=== PATIENT | female | born 1940 | race Caucasian/White ===

== ENCOUNTER → 2016-11-21 | Outpatient (REF) | payer MEDICARE, BC | LOC: M LAB REF 13:36 | PROVIDERS: ATTEND Internal Medicine Medical Oncology | DX: C50.919 Malignant neoplasm of unspecified site of unspecified female breast (principal) ==

== ENCOUNTER → 2016-12-27 | Outpatient (CLI) | payer MEDICARE ==
--- NOTE | 2016-12-27 10:46 | REPMRS ---
Patient History The patient states she had a clinical breast exam in 2016. Patient is postmenopausal, has history of cancer in the left breast at age 66, and had previous chemotherapy. 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 Radiation therapy of the left breast, 2006. Chemotherapy. Digital Mammo Screening Bilat: December 27, 2016 - Exam #: [id number] Bilateral CC and MLO view(s) were taken. Technologist: Christine Pretty, Technologist Prior study comparison: December 27, 2015, bilateral digital mammo screening bilat performed at [facility]. December 22, 2014, bilateral digital mammo screening bilat performed at [facility]. FINDINGS: There are scattered fibroglandular densities. There is no evidence of cancer on this mammogram. Scattered lymph nodes are seen in the axilla. No significant changes when compared with prior studies. ASSESSMENT: BI-RADS/ACR category 2 mammogram. Benign finding(s). Recommendation Routine screening mammogram of both breasts in 1 year (for women over age 40). This mammogram was interpreted with the aid of an FDA-approved computer-aided dectection system. Electronically Signed By: Baljinder Vergara MD 12/27/16 [id number]
== END ==
LOC: M RAD 09:11
PROVIDERS: ATTEND Internal Medicine Medical Oncology
DX: Z12.31 Encounter for screening mammogram for malignant neoplasm of breast (principal); Z85.3 Personal history of malignant neoplasm of breast

== ENCOUNTER → 2017-05-22 | Outpatient (REF) | payer MEDICARE, BC | LOC: M LAB REF 13:21 | PROVIDERS: ATTEND Internal Medicine Medical Oncology | DX: C50.919 Malignant neoplasm of unspecified site of unspecified female breast (principal) ==

== ENCOUNTER → 2017-12-29 | Outpatient (CLI) | payer MEDICARE | LOC: M RAD 09:16 | DX: Z12.31 Encounter for screening mammogram for malignant neoplasm of breast (principal); Z78.0 Asymptomatic menopausal state; Z85.3 Personal history of malignant neoplasm of breast; Z92.21 Personal history of antineoplastic chemotherapy; Z92.3 Personal history of irradiation | CPT/HCPCS: 77067 ==

== ENCOUNTER → 2018-06-23 | Outpatient (CLI) | payer MEDICARE ==
[2018-06-23 09:51] LABS: HEMATOCRIT 42.9 % (36.0-47.0); HEMOGLOBIN 13.7 g/dl (12.0-15.5); MEAN CORPUSCULAR HEMOGLOBIN 29.5 pg (27.0-33.0); MEAN CORPUSCULAR HGB CONC 31.9 g/dl (32.0-36.5); MEAN CORPUSCULAR VOLUME 92.3 fl (80.0-96.0); PLATELET COUNT, AUTOMATED 245 10^3/uL (150-450); RED BLOOD COUNT 4.65 10^6/uL (4.00-5.40); WHITE BLOOD COUNT 8.3 10^3/uL (4.0-10.0)
[2018-06-23 10:25] LABS: ALBUMIN 3.4 GM/DL (3.2-5.2); ALBUMIN/GLOBULIN RATIO 0.72 (1.00-1.93); ALKALINE PHOSPHATASE 88 U/L (45-117); ALT/SGPT 25 U/L (12-78); ANION GAP 8 MEQ/L (8-16); AST/SGOT 24 U/L (7-37); BILIRUBIN,TOTAL 0.7 MG/DL (0.2-1.0); BLOOD UREA NITROGEN 14 MG/DL (7-18); CALCIUM LEVEL 9.5 MG/DL (8.8-10.2); CARBON DIOXIDE LEVEL 26 MEQ/L (21-32); CHLORIDE LEVEL 107 MEQ/L (98-107); CREATININE FOR GFR 1.04 MG/DL (0.55-1.30); GLOMERULAR FILTRATION RATE 54.6 (>39); GLUCOSE, FASTING 103 MG/DL (70-100); POTASSIUM SERUM 4.5 MEQ/L (3.5-5.1); SODIUM LEVEL 141 MEQ/L (136-145); TOTAL PROTEIN 8.1 GM/DL (6.4-8.2)
[2018-06-23 10:28] LABS: ERYTHROCYTE SEDIMENTATION RATE 57 mm/hr (0-30)
[2018-06-23 10:55] LABS: INR 1.12; PROTHROMBIN TIME 14.6 SECONDS (12.1-14.4)
== END ==
LOC: M LAB 08:45
DX: Z01.818 Encounter for other preprocedural examination (principal); I10 Essential (primary) hypertension; R79.1 Abnormal coagulation profile
CPT/HCPCS: 71046

== ENCOUNTER 2018-07-06 09:04 | Inpatient (IN) | payer MEDICARE ==
[2018-07-06] MEDS: LEVOTHYROXINE 25MCG TABLET (0.025MG) PO (06:00)
[2018-07-06] MEDS ORDERED: ceFAZolin 2 GM/D5W 50 ML IV BAG (J0690 PER 500MG) As Ordered (09:25)
[2018-07-06] MEDS: LR 1,000 ML IV ×3 (09:59→13:15)
[2018-07-06 10:13] LABS: GLUCOSE, FASTING 147 MG/DL (70-100)
[2018-07-06] MEDS ORDERED: PHENYLephrine HCL 500 MCG/5 ML (100MCG/ML) SYRINGE (J2370) As Ordered (11:25)
[2018-07-06] MEDS ORDERED: LIDOCAINE 2% INJ 100 MG/5 ML SDV (FOR ANES.) As Ordered (11:25)
[2018-07-06] MEDS ORDERED: MIDAZOLAM INJ 2 MG/2 ML VIAL (J2250) As Ordered (11:25)
[2018-07-06] MEDS ORDERED: ROCURONIUM BROMIDE 50 MG/5 ML VIAL As Ordered (11:25)
[2018-07-06] MEDS ORDERED: PROPOFOL 200 MG/20 ML VIAL As Ordered (11:25)
[2018-07-06] MEDS ORDERED: fentaNYL 100 MCG/2 ML INJECTION (J3010) As Ordered ×2 (11:25→11:26)
[2018-07-06] MEDS: ceFAZolin 1GM INJ (J0690 PER 500MG) As Ordered (11:38)
[2018-07-06] MEDS ORDERED: METOCLOPRAMIDE INJ 10MG/2ML VIAL (J2765) As Ordered (11:45)
[2018-07-06] MEDS ORDERED: ONDANSETRON 4MG/2ML VIAL (J2405) As Ordered (12:17)
[2018-07-06] MEDS ORDERED: NEOSTIGMINE 10 MG/10 ML VIAL (J2710) As Ordered (12:19)
[2018-07-06] MEDS ORDERED: GLYCOPYRROLATE INJ 0.2 MG/ML 2 ML VIAL As Ordered (12:19)
[2018-07-06] MEDS: EPINEPHrine INJ 1 MG/ML 1ML AMP As Ordered (12:21)
[2018-07-06] MEDS: TRANEXAMIC ACID 100 MG/ML 10ML VIAL As Ordered (12:21)
[2018-07-06] MEDS ORDERED: PERCOCET 5MG/325MG TAB As Ordered (12:52)
[2018-07-06] MEDS ORDERED: MORPHINE 1MG/ML IN 0.9% NACL 100ML IV BAG IV (13:00)
[2018-07-06] MEDS ORDERED: NALBUPHINE HCL 10 MG/ML AMP (J2300) IV (13:00)
[2018-07-06] MEDS ORDERED: EPIDURAL/PCA KEYS XX (13:00)
[2018-07-06] MEDS ORDERED: diphenhydrAMINE INJ 50MG/ML VIAL (J1200) IV (13:00)
[2018-07-06] MEDS ORDERED: FLEET ENEMA PR (13:00)
[2018-07-06] MEDS ORDERED: ONDANSETRON 4MG/2ML VIAL (J2405) IV ×3 (13:00→13:15)
[2018-07-06] MEDS ORDERED: NALOXONE INJ 0.4 MG/1 ML VIAL (J2310) IV (13:00)
[2018-07-06] MEDS ORDERED: ACETAMINOPHEN TAB 650MG DOSE (2X325MG) PO (13:00)
[2018-07-06] MEDS: PERCOCET 5MG/325MG TAB PO ×2 (13:05→13:40)
[2018-07-06] MEDS ORDERED: fentaNYL 100 MCG/2 ML INJECTION (J3010) IV (13:15)
[2018-07-06] MEDS ORDERED: HYDROMORPHONE HCL 0.5 MG/ 0.5 ML SYRINGE (J1170 PER 1) IV (13:15)
[2018-07-06] MEDS ORDERED: GLUCAGON FOR INJ 1 MG VIAL (J1610) SC (15:15)
[2018-07-06] MEDS ORDERED: DEXTROSE 50% 50 ML SYRINGE IV (15:15)
[2018-07-06] MEDS ORDERED: GLUCOSE 4 GM CHEW TABLET PO (15:15)
[2018-07-06 16:44] LABS: BEDSIDE GLUCOSE 176 MG/DL (83-110)
[2018-07-06] MEDS: HumaLOG INSULIN (NovoLOG) PER UNIT SC ×2 (17:59→21:00)
[2018-07-06] MEDS: SENOKOT S TAB PO (22:11)
[2018-07-06 22:20] LABS: BEDSIDE GLUCOSE 191 MG/DL (83-110)
[2018-07-07] MEDS: LR 1,000 ML IV (02:20)
[2018-07-07] MEDS: LEVOTHYROXINE 25MCG TABLET (0.025MG) PO (05:44)
[2018-07-07 06:45] LABS: HEMATOCRIT 34.5 % (36.0-47.0); HEMOGLOBIN 11.1 g/dl (12.0-15.5); MEAN CORPUSCULAR HEMOGLOBIN 29.6 pg (27.0-33.0); MEAN CORPUSCULAR HGB CONC 32.2 g/dl (32.0-36.5); PLATELET COUNT, AUTOMATED 256 10^3/uL (150-450); RED BLOOD COUNT 3.75 10^6/uL (4.00-5.40); RED CELL DISTRIBUTION WIDTH 13.6 % (11.5-14.5); WHITE BLOOD COUNT 9.6 10^3/uL (4.0-10.0)
[2018-07-07] MEDS ORDERED: PERCOCET 5MG/325MG TAB PO (06:45)
[2018-07-07] MEDS ORDERED: ONDANSETRON 4 MG TAB (S0181) PO (06:45)
[2018-07-07 07:16] LABS: ALBUMIN 2.6 GM/DL (3.2-5.2); ALBUMIN/GLOBULIN RATIO 0.63 (1.00-1.93); ALKALINE PHOSPHATASE 65 U/L (45-117); ALT/SGPT 23 U/L (12-78); ANION GAP 5 MEQ/L (8-16); AST/SGOT 32 U/L (7-37); BILIRUBIN,TOTAL 0.5 MG/DL (0.2-1.0); BLOOD UREA NITROGEN 15 MG/DL (7-18); CALCIUM LEVEL 8.2 MG/DL (8.8-10.2); CARBON DIOXIDE LEVEL 28 MEQ/L (21-32); CHLORIDE LEVEL 103 MEQ/L (98-107); CREATININE FOR GFR 1.01 MG/DL (0.55-1.30); GLOMERULAR FILTRATION RATE 56.3 (>39); GLUCOSE, FASTING 148 MG/DL (70-100); MAGNESIUM LEVEL 1.5 MG/DL (1.8-2.4); POTASSIUM SERUM 4.6 MEQ/L (3.5-5.1); SODIUM LEVEL 136 MEQ/L (136-145); TOTAL PROTEIN 6.7 GM/DL (6.4-8.2)
[2018-07-07] MEDS: HumaLOG INSULIN (NovoLOG) PER UNIT SC ×4 (08:14→21:00)
[2018-07-07] MEDS: PERCOCET 5MG/325MG TAB PO ×3 (08:15→23:18)
[2018-07-07] MEDS: OMEPRAZOLE 20 MG CAP PO (08:54)
[2018-07-07] MEDS: SENOKOT S TAB PO ×2 (08:54→21:08)
[2018-07-07] MEDS: LISINOPRIL 10 MG TAB PO (08:54)
[2018-07-07] MEDS: MOM 30ML SUSPENSION UDC PO (08:55)
[2018-07-07] MEDS: MIRALAX *UNIT DOSE* 17GM PACKET PO (08:55)
[2018-07-07] MEDS: ATORVASTATIN 20 MG TAB PO (08:55)
[2018-07-07 11:54] LABS: BEDSIDE GLUCOSE 186 MG/DL (83-110)
[2018-07-07] MEDS: MAG SULF 1GM/100ML (MAG RUN) 1 GM in APPROPRIATE DILUENT 1 EA IV ×2 (12:50→14:05)
[2018-07-07 16:46] LABS: BEDSIDE GLUCOSE 138 MG/DL (83-110)
[2018-07-07] MEDS: RIVAROXABAN 10 MG TAB (XARELTO) PO (17:39)
[2018-07-07 20:44] LABS: BEDSIDE GLUCOSE 173 MG/DL (83-110)
[2018-07-08] MEDS: LEVOTHYROXINE 25MCG TABLET (0.025MG) PO (05:11)
[2018-07-08] MEDS: PERCOCET 5MG/325MG TAB PO ×3 (05:12→13:12)
[2018-07-08 07:11] LABS: HEMATOCRIT 32.6 % (36.0-47.0); HEMOGLOBIN 10.2 g/dl (12.0-15.5); MEAN CORPUSCULAR HEMOGLOBIN 29.4 pg (27.0-33.0); MEAN CORPUSCULAR HGB CONC 31.3 g/dl (32.0-36.5); MEAN CORPUSCULAR VOLUME 93.9 fl (80.0-96.0); PLATELET COUNT, AUTOMATED 244 10^3/uL (150-450); RED BLOOD COUNT 3.47 10^6/uL (4.00-5.40); RED CELL DISTRIBUTION WIDTH 13.8 % (11.5-14.5); WHITE BLOOD COUNT 10.2 10^3/uL (4.0-10.0)
[2018-07-08 07:25] LABS: ANION GAP 8 MEQ/L (8-16); BLOOD UREA NITROGEN 16 MG/DL (7-18); CALCIUM LEVEL 8.7 MG/DL (8.8-10.2); CARBON DIOXIDE LEVEL 27 MEQ/L (21-32); CHLORIDE LEVEL 100 MEQ/L (98-107); CREATININE FOR GFR 0.94 MG/DL (0.55-1.30); GLOMERULAR FILTRATION RATE > 60.0 (>39); GLUCOSE, FASTING 152 MG/DL (70-100); MAGNESIUM LEVEL 2.1 MG/DL (1.8-2.4); POTASSIUM SERUM 4.5 MEQ/L (3.5-5.1); SODIUM LEVEL 135 MEQ/L (136-145)
[2018-07-08] MEDS: HumaLOG INSULIN (NovoLOG) PER UNIT SC ×2 (08:35→12:01)
[2018-07-08] MEDS: ATORVASTATIN 20 MG TAB PO (08:57)
[2018-07-08] MEDS: LISINOPRIL 20 MG TAB PO (08:57)
[2018-07-08] MEDS: OMEPRAZOLE 20 MG CAP PO (08:58)
[2018-07-08] MEDS: MIRALAX *UNIT DOSE* 17GM PACKET PO (08:58)
[2018-07-08] MEDS: SENOKOT S TAB PO (08:58)
[2018-07-08] MEDS: MOM 30ML SUSPENSION UDC PO (08:58)
[2018-07-08 16:55] LABS: BEDSIDE GLUCOSE 145 MG/DL (83-110)
[2018-07-09 11:59] LABS: BEDSIDE GLUCOSE 133 MG/DL (83-110)
== END 2018-07-08 15:30 | DRG 470 ==
LOC: M OR 09:04 → M MS5PR 14:47
PROVIDERS: Orthopaedic Surgery
PROC: 0SR902A Replacement of Right Hip Joint with Metal on Polyethylene Synthetic Substitute, Uncemented, Open Approach (ICD-10-PCS; principal; 2018-07-06 10:42)
DX: M16.11 Unilateral primary osteoarthritis, right hip (principal); E78.5 Hyperlipidemia, unspecified; I10 Essential (primary) hypertension; E55.9 Vitamin D deficiency, unspecified; E11.9 Type 2 diabetes mellitus without complications; E03.9 Hypothyroidism, unspecified; K21.9 Gastro-esophageal reflux disease without esophagitis; Z95.0 Presence of cardiac pacemaker; Z98.49 Cataract extraction status, unspecified eye; Z92.21 Personal history of antineoplastic chemotherapy; Z92.3 Personal history of irradiation; Z79.84 Long term (current) use of oral hypoglycemic drugs; Z85.3 Personal history of malignant neoplasm of breast; Z79.899 Other long term (current) drug therapy

== ENCOUNTER 2018-07-08 15:40 | Inpatient (IN) | payer MEDICARE ==
[2018-07-08] MEDS ORDERED: ONDANSETRON 4MG/2ML VIAL (J2405) IM (16:30)
[2018-07-08] MEDS ORDERED: BISACODYL 5 MG TAB PO (16:30)
[2018-07-08] MEDS ORDERED: MOM 30ML SUSPENSION UDC PO (16:30)
[2018-07-08] MEDS ORDERED: PERCOCET 5MG/325MG TAB PO (16:30)
[2018-07-08] MEDS: RIVAROXABAN 10 MG TAB (XARELTO) PO (18:01)
[2018-07-08] MEDS: glipiZIDE (GLUCOTROL) 5 MG TAB PO (18:01)
[2018-07-08 20:43] LABS: APPEARANCE, URINE HAZY (CLEAR); BACTERIA, URINE AUTO NEGATIVE (NEGATIVE); BILIRUBIN, URINE AUTO NEGATIVE (NEGATIVE); BLOOD, URINE BLOOD NEGATIVE (NEGATIVE); COLOR, URINE YELLOW (YELLOW); GLUCOSE, URINE (UA) AUTO NEGATIVE (NEGATIVE); KETONE, URINE AUTO NEGATIVE (NEGATIVE); LEUKOCYTE ESTERASE, URINE AUTO NEGATIVE (NEGATIVE); NITRITE, URINE AUTO NEGATIVE (NEGATIVE); PROTEIN, URINE AUTO NEGATIVE (NEGATIVE); RBC, URINE AUTO 2 /HPF (0-3); SPECIFIC GRAVITY URINE AUTO 1.016 (1.002-1.035); SQUAMOUS EPITHELIAL CELL UR AU 2 /HPF (0-6); UROBILINOGEN, URINE AUTO 0.2 mg/dL (0.0-2.0); WBC, URINE AUTO 2 /HPF (0-3)
[2018-07-08] MEDS: SENOKOT S TAB PO (21:32)
[2018-07-08] MEDS: PERCOCET 5MG/325MG TAB PO (21:32)
[2018-07-09] MEDS: LEVOTHYROXINE 25MCG TABLET (0.025MG) PO (06:09)
[2018-07-09] MEDS: PERCOCET 5MG/325MG TAB PO ×2 (06:10→22:04)
[2018-07-09 07:03] LABS: BASO % 0.1 % (0.0-1.0); EOS # 0.2 10^3/uL (0.0-0.50); EOS % 1.6 % (0.0-3.0); HEMATOCRIT 36.1 % (36.0-47.0); HEMOGLOBIN 11.3 g/dl (12.0-15.5); IMMATURE GRANULOCYTE % 0.5 % (0-3.0); LYMPH # 1.7 10^3/uL (1.5-4.5); LYMPH % 12.8 % (24.0-44.0); MEAN CORPUSCULAR HEMOGLOBIN 29.3 pg (27.0-33.0); MEAN CORPUSCULAR HGB CONC 31.3 g/dl (32.0-36.5); MEAN CORPUSCULAR VOLUME 93.5 fl (80.0-96.0); MONO % 7.8 % (0.0-5.0); NEUTROPHILS # 10.3 10^3/uL (1.8-7.7); NEUTROPHILS % 77.2 % (36.0-66.0); PLATELET COUNT, AUTOMATED 287 10^3/uL (150-450); RED BLOOD COUNT 3.86 10^6/uL (4.00-5.40); RED CELL DISTRIBUTION WIDTH 13.6 % (11.5-14.5); WHITE BLOOD COUNT 13.4 10^3/uL (4.0-10.0)
[2018-07-09 07:49] LABS: ALBUMIN 2.6 GM/DL (3.2-5.2); ALBUMIN/GLOBULIN RATIO 0.54 (1.00-1.93); ALKALINE PHOSPHATASE 68 U/L (45-117); ALT/SGPT 15 U/L (12-78); ANION GAP 13 MEQ/L (8-16); AST/SGOT 25 U/L (7-37); BILIRUBIN,TOTAL 0.6 MG/DL (0.2-1.0); BLOOD UREA NITROGEN 16 MG/DL (7-18); CALCIUM LEVEL 9.1 MG/DL (8.8-10.2); CARBON DIOXIDE LEVEL 22 MEQ/L (21-32); CHLORIDE LEVEL 100 MEQ/L (98-107); CREATININE FOR GFR 0.99 MG/DL (0.55-1.30); GLOMERULAR FILTRATION RATE 57.6 (>39); GLUCOSE, FASTING 142 MG/DL (70-100); POTASSIUM SERUM 4.7 MEQ/L (3.5-5.1); SODIUM LEVEL 135 MEQ/L (136-145); TOTAL PROTEIN 7.4 GM/DL (6.4-8.2)
[2018-07-09] MEDS: ATORVASTATIN 20 MG TAB PO (09:46)
[2018-07-09] MEDS: OMEPRAZOLE 20 MG CAP PO (09:46)
[2018-07-09] MEDS: glipiZIDE (GLUCOTROL) 5 MG TAB PO ×2 (09:47→18:10)
[2018-07-09] MEDS: LISINOPRIL 10 MG TAB PO ×2 (09:47→11:32)
[2018-07-09] MEDS: SENOKOT S TAB PO ×2 (09:47→20:53)
[2018-07-09] MEDS: SITagliptin 50 MG TAB (JANUVIA) PO (09:47)
[2018-07-09] MEDS ORDERED: amLODIPine 5 MG TAB PO (10:45)
[2018-07-09] MEDS: ACETAMINOPHEN TAB 650MG DOSE (2X325MG) PO (14:56)
[2018-07-09 17:33] LABS: BEDSIDE GLUCOSE 133 MG/DL (83-110)
[2018-07-09] MEDS: RIVAROXABAN 10 MG TAB (XARELTO) PO (18:10)
[2018-07-10 05:43] LABS: BEDSIDE GLUCOSE 93 MG/DL (83-110)
[2018-07-10] MEDS: LEVOTHYROXINE 25MCG TABLET (0.025MG) PO (06:23)
[2018-07-10] MEDS: ACETAMINOPHEN TAB 650MG DOSE (2X325MG) PO (08:16)
[2018-07-10] MEDS: OMEPRAZOLE 20 MG CAP PO (08:16)
[2018-07-10] MEDS: SITagliptin 50 MG TAB (JANUVIA) PO (08:16)
[2018-07-10] MEDS: glipiZIDE (GLUCOTROL) 5 MG TAB PO ×2 (08:16→17:12)
[2018-07-10] MEDS: LISINOPRIL 20 MG TAB PO (08:16)
[2018-07-10] MEDS: ATORVASTATIN 20 MG TAB PO (08:16)
[2018-07-10] MEDS: SENOKOT S TAB PO ×2 (08:16→21:00)
[2018-07-10] MEDS ORDERED: amLODIPine 5 MG TAB PO (09:00)
[2018-07-10 12:09] LABS: BEDSIDE GLUCOSE 133 MG/DL (83-110)
[2018-07-10 17:04] LABS: BEDSIDE GLUCOSE 182 MG/DL (83-110)
[2018-07-10] MEDS: RIVAROXABAN 10 MG TAB (XARELTO) PO (17:12)
[2018-07-10] MEDS: PERCOCET 5MG/325MG TAB PO (21:42)
[2018-07-11] MEDS: LEVOTHYROXINE 25MCG TABLET (0.025MG) PO (05:23)
[2018-07-11 05:25] LABS: BEDSIDE GLUCOSE 91 MG/DL (83-110)
[2018-07-11] MEDS: LISINOPRIL 20 MG TAB PO (06:24)
[2018-07-11] MEDS: SENOKOT S TAB PO ×2 (09:00→21:00)
[2018-07-11] MEDS: glipiZIDE (GLUCOTROL) 5 MG TAB PO ×2 (09:14→18:01)
[2018-07-11] MEDS: OMEPRAZOLE 20 MG CAP PO (09:14)
[2018-07-11] MEDS: ATORVASTATIN 20 MG TAB PO (09:15)
[2018-07-11] MEDS: SITagliptin 50 MG TAB (JANUVIA) PO (09:15)
[2018-07-11] MEDS: ACETAMINOPHEN TAB 650MG DOSE (2X325MG) PO (09:18)
[2018-07-11 11:53] LABS: BEDSIDE GLUCOSE 155 MG/DL (83-110)
[2018-07-11 16:59] LABS: BEDSIDE GLUCOSE 123 MG/DL (83-110)
[2018-07-11] MEDS: RIVAROXABAN 10 MG TAB (XARELTO) PO (18:01)
[2018-07-11] MEDS: PERCOCET 5MG/325MG TAB PO (21:12)
[2018-07-12] MEDS: LEVOTHYROXINE 25MCG TABLET (0.025MG) PO (05:56)
[2018-07-12 06:09] LABS: BEDSIDE GLUCOSE 92 MG/DL (83-110)
[2018-07-12] MEDS: OMEPRAZOLE 20 MG CAP PO (08:24)
[2018-07-12] MEDS: glipiZIDE (GLUCOTROL) 5 MG TAB PO ×2 (08:24→18:14)
[2018-07-12] MEDS: ATORVASTATIN 20 MG TAB PO (08:24)
[2018-07-12] MEDS: SITagliptin 50 MG TAB (JANUVIA) PO (08:24)
[2018-07-12] MEDS: LISINOPRIL 20 MG TAB PO (08:25)
[2018-07-12] MEDS: VITAMIN D 50,000 UNITS CAPSULE (ERGOCALCIFEROL 1.25MG) PO (08:26)
[2018-07-12] MEDS: SENOKOT S TAB PO ×2 (08:26→19:46)
[2018-07-12 16:58] LABS: BEDSIDE GLUCOSE 86 MG/DL (83-110)
[2018-07-12] MEDS: RIVAROXABAN 10 MG TAB (XARELTO) PO (18:14)
[2018-07-12] MEDS: PERCOCET 5MG/325MG TAB PO (21:05)
[2018-07-13] MEDS: LEVOTHYROXINE 25MCG TABLET (0.025MG) PO (06:13)
[2018-07-13] MEDS: OMEPRAZOLE 20 MG CAP PO (08:02)
[2018-07-13] MEDS: ATORVASTATIN 20 MG TAB PO (08:02)
[2018-07-13] MEDS: SENOKOT S TAB PO (08:02)
[2018-07-13] MEDS: glipiZIDE (GLUCOTROL) 5 MG TAB PO (08:02)
[2018-07-13] MEDS: LISINOPRIL 20 MG TAB PO (08:02)
[2018-07-13] MEDS: SITagliptin 50 MG TAB (JANUVIA) PO (08:02)
[2018-07-13 08:07] LABS: BEDSIDE GLUCOSE 136 MG/DL (83-110)
== END 2018-07-13 11:45 | disposition home or self-care (01) | DRG 561 ==
LOC: M PM&R 07-11 21:12
DX: Z47.1 Aftercare following joint replacement surgery (principal); I10 Essential (primary) hypertension; E78.5 Hyperlipidemia, unspecified; E11.9 Type 2 diabetes mellitus without complications; E03.9 Hypothyroidism, unspecified; Z95.0 Presence of cardiac pacemaker; Z98.49 Cataract extraction status, unspecified eye; Z79.899 Other long term (current) drug therapy; Z79.84 Long term (current) use of oral hypoglycemic drugs; Z85.3 Personal history of malignant neoplasm of breast

== ENCOUNTER → 2018-12-31 | Outpatient (CLI) | payer MEDICARE ==
[~2018-12-31] MED LIST: ACE65ERTAB PO; ATOR40TA75 PO; GLIP5TAB8 PO; JANU100T PO; LISI-538 PO; LISI10TA4 PO; OMEP20CA3 PO; PERC5TAB12 PO; PERCOCET PO; SYNT25TA PO; TYLE650T35 PO; VITA50005 PO; XARE10TA PO
--- NOTE | 2018-12-31 14:58 | REPMRS ---
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 Radiation therapy of the left breast, 2006. Chemotherapy. Patient has a new pacemaker. Digital Mammo Screening Bilat: December 31, 2018 - Exam #: [id number] Bilateral CC and MLO view(s) were taken. Technologist: Christine Pretty, Technologist Prior study comparison: December 29, 2017, bilateral digital mammo screening bilat performed at [facility]. December 27, 2016, bilateral digital mammo screening bilat performed at [facility]. FINDINGS: There are scattered fibroglandular densities. There has been no change in the appearance of the mammogram from the prior studies. There is a mild amount of residual fibroglandular tissue which is fairly symmetric. There is no interval development of dominant mass, architectural distortion, or clustered microcalcification suggestive of malignancy. New left sided pacemaker limits evaluation further in left breast. Stable postoperative changes. Nipple retraction bilaterally unchanged for years. Scattered lymph nodes are seen in the right axilla. 3-D tomosynthesis shows no additional findings. No significant changes when compared with prior studies. Assessment: BI-RADS/ACR category 2 mammogram. Benign Findings. Recommendation Routine screening mammogram in 1 year (for women over age 40). This mammogram was interpreted with the aid of an FDA-approved computer-aided dectection system. A. Negative x-ray reports should not delay biopsy if a dominant or clinically suspicious mass is present. B. Four to eight percent of cancers are not identified by mammography. C. Adenosis and dense breast may obscure an underlying neoplasm. Electronically Signed By: Calvin Coppola MD 12/31/18 [id number]
== END ==
LOC: M RAD 10:09
PROVIDERS: ATTEND Internal Medicine Hematology & Oncology
DX: Z12.31 Encounter for screening mammogram for malignant neoplasm of breast (principal); Z85.3 Personal history of malignant neoplasm of breast; Z92.21 Personal history of antineoplastic chemotherapy; Z92.3 Personal history of irradiation; Z95.0 Presence of cardiac pacemaker

== ENCOUNTER → 2024-04-26 | Outpatient (CLI) | payer MEDICARE ==
[~2024-04-26] MED LIST changes: +ACET650T61 PO; +AMLO-183 PO; +GLIP5TAB17 PO; -GLIP5TAB8 PO; -LISI-538 PO; +LISI10TA22 PO; -LISI10TA4 PO; +LISI20TA33 PO; +OMEP1CAP73 PO; -OMEP20CA3 PO; -TYLE650T35 PO
[2024-04-26 13:17] LABS: HEMATOCRIT 34.1 % (36.0-47.0); HEMOGLOBIN 11.3 g/dl (12.0-15.5); MEAN CORPUSCULAR HEMOGLOBIN 30.5 pg (27.0-33.0); MEAN CORPUSCULAR HGB CONC 33.1 g/dl (32.0-36.5); MEAN CORPUSCULAR VOLUME 92.2 fl (80.0-96.0)
[2024-04-26 13:30] LABS: PLATELET COUNT, AUTOMATED 58 10^3/uL (150-450)
[2024-04-26 13:51] LABS: ALBUMIN 2.7 G/DL (3.2-5.2); BILIRUBIN,TOTAL 1.3 MG/DL (0.3-1.2); CALCIUM LEVEL 8.5 MG/DL (8.3-10.6); CREATININE FOR GFR 1.09 MG/DL (0.55-1.30); GLOMERULAR FILTRATION RATE 50.9 (>32); POTASSIUM SERUM 4.5 MMOL/L (3.5-5.1)
[2024-04-27 08:38] LABS: WHITE BLOOD COUNT 4.5 10^3/uL (4.0-10.0)
== END ==
LOC: M WUC 09:15
PROVIDERS: ATTEND Physician Assistant
DX: R50.9 Fever, unspecified (principal); R05.3 Chronic cough; R06.02 Shortness of breath; R53.83 Other fatigue; R53.1 Weakness

== ENCOUNTER 2024-05-04 12:22 | Inpatient (IN) | payer MEDICARE ==
[~2024-05-04] VITALS: Ht 152.4 cm; Wt 79.7 kg
[2024-05-04 13:11] LABS: HEMATOCRIT 25.3 % (36.0-47.0); HEMOGLOBIN 8.4 g/dl (12.0-15.5); MEAN CORPUSCULAR HEMOGLOBIN 29.3 pg (27.0-33.0); MEAN CORPUSCULAR HGB CONC 33.2 g/dl (32.0-36.5); MEAN CORPUSCULAR VOLUME 88.2 fl (80.0-96.0); RED BLOOD COUNT 2.87 10^6/uL (4.00-5.40)
[2024-05-04 13:14] LABS: PLATELET COUNT, AUTOMATED 49 10^3/uL (150-450)
[2024-05-04 13:36] LABS: ALBUMIN 1.6 G/DL (3.2-5.2); ALKALINE PHOSPHATASE 94 U/L (46-116); ALT/SGPT 66 U/L (7.0-40); AST/SGOT 82 U/L (<34); BILIRUBIN,DIRECT 0.5 MG/DL (<0.4); BILIRUBIN,TOTAL 1.1 MG/DL (0.3-1.2); BLOOD UREA NITROGEN 23 MG/DL (9-23); CALCIUM LEVEL 7.3 MG/DL (8.3-10.6); CARBON DIOXIDE LEVEL 20 MMOL/L (20-31); CHLORIDE LEVEL 99 MMOL/L (98-107); CREATININE FOR GFR 0.77 MG/DL (0.55-1.30); GLOMERULAR FILTRATION RATE > 60.0 (>32); GLUCOSE, FASTING 224 MG/DL (74-106); POTASSIUM SERUM 4.5 MMOL/L (3.5-5.1); SODIUM LEVEL 124 MMOL/L (136-145); THYROID STIMULATING HORMONE 3.321 uIU/ML (0.55-4.78); TOTAL PROTEIN 5.4 G/DL (5.7-8.2)
[2024-05-04 13:41] LABS: BASOPHILS 1 % (0-1); LYMPHOCYTES 9 % (16-44); MONOCYTES 9 % (0-5); NEUTROPHILS 80 % (28-66)
[2024-05-04 13:42] LABS: ANISOCYTOSIS 1+; HELMET CELLS 1+; PLATELET ESTIMATE DECREASED (NORMAL); TEAR DROP CELLS 1+; TOXIC VACUOLATION 1+
[2024-05-04] MEDS ORDERED: DOXY-323 PO (13:53)
[2024-05-04] MEDS ORDERED: AMLO5CAP53 (13:53)
[2024-05-04] MEDS ORDERED: GLIP5TAB20 PO (13:53)
[2024-05-04] MEDS ORDERED: SEMA0.257 INJ (13:53)
[2024-05-04 14:11] LABS: CK-MB VALUE MASS 2.3 NG/ML (<3.6)
[2024-05-04 14:17] LABS: CPK CREATINE PHOSPHOKINASE 34 U/L (34-145); MB/CK RELATIVE INDEX 6.76 (< OR =4)
[2024-05-04] MEDS: NS 1,000 ML IV SCH ×2 (14:49→16:50)
[2024-05-04 15:21] LABS: OSMOLALITY SERUM 276 MOSM/KG (280-301)
[2024-05-04 15:25] LABS: CREATININE,RANDOM URINE 97.7 MG/DL
[2024-05-04] MEDS ORDERED: LOTR5CAP2 PO (16:23)
[2024-05-04] MEDS ORDERED: ACET-897 PO (16:23)
[2024-05-04] MEDS ORDERED: ERGO500029 PO (16:23)
[2024-05-04] MEDS ORDERED: HOME MED LIST COMPLETE! XX SCH (16:30)
[2024-05-04] MEDS ORDERED: DEXTROSE 50% 50ML SYRINGE IV PRN (16:50)
[2024-05-04] MEDS ORDERED: GLUCAGON INJ 1MG VIAL SC PRN (16:50)
[2024-05-04] MEDS ORDERED: GLUCOSE 4 GM CHEW PO PRN (16:50)
[2024-05-04] MEDS ORDERED: ISOVUE-370 76% 100ML VIAL As Ordered ONE (17:12)
[2024-05-04 17:23] LABS: IRON (FE) 21 UG/DL (50-170)
[2024-05-04 17:25] LABS: VITAMIN B12 LEVEL 808 PG/ML (211-911)
[2024-05-04] MEDS: INSULIN LISPRO (NovoLOG) PER UNIT SC SCH ×2 (17:30→20:30)
[2024-05-04 17:36] LABS: PROCALCITONIN 0.86 ng/ml
[2024-05-04 17:43] LABS: HEPATITIS B SURFACE ANTIGEN NEGATIVE (NEGATIVE)
[2024-05-04 18:04] LABS: HEPATITIS B CORE ANTIBODY IGM NEGATIVE (NEGATIVE); HEPATITIS C VIRUS ABY INDEX 0.33 INDEX (<0.8)
[2024-05-04 19:09] LABS: FERRITIN 1710.9 NG/ML (7.3-270.7); FOLATE 21.09 NG/ML (>5.4)
[2024-05-04] MEDS: DOXYCYCLINE HYCLATE 100 MG in D5W MINI-BAG PLUS 100 ML IV SCH (20:23)
[2024-05-04 21:49] VITALS: BP 139/65; TEMP 97.9; O2SAT 94
[2024-05-04] MEDS: DOXYCYCLINE HYCLATE 200 MG in D5W MINI-BAG PLUS 100 ML IV ONE (22:30)
[2024-05-05] MEDS: LIDOCAINE 5% (LIDODERM) PATCH TD SCH (00:47)
[2024-05-05] MEDS: NYSTATIN 100,000 UNITS/GM TOPICAL PWD 15GM TOP PRN (02:55)
[2024-05-05 04:10] VITALS: BP 114/92; TEMP 97.7; O2SAT 95
[2024-05-05 04:24] LABS: HEMATOCRIT 24.5 % (36.0-47.0); MEAN CORPUSCULAR HEMOGLOBIN 29.1 pg (27.0-33.0); MEAN CORPUSCULAR HGB CONC 32.7 g/dl (32.0-36.5); MEAN CORPUSCULAR VOLUME 89.1 fl (80.0-96.0); PLATELET COUNT, AUTOMATED 38 10^3/uL (150-450); RED BLOOD COUNT 2.75 10^6/uL (4.00-5.40); WHITE BLOOD COUNT 4.5 10^3/uL (4.0-10.0)
[2024-05-05 04:37] LABS: ALBUMIN 1.6 G/DL (3.2-5.2); ALKALINE PHOSPHATASE 81 U/L (46-116); ALT/SGPT 58 U/L (7.0-40); AST/SGOT 75 U/L (<34); BLOOD UREA NITROGEN 19 MG/DL (9-23); CALCIUM LEVEL 7.5 MG/DL (8.3-10.6); CARBON DIOXIDE LEVEL 20 MMOL/L (20-31); CHLORIDE LEVEL 105 MMOL/L (98-107); CREATININE FOR GFR 0.75 MG/DL (0.55-1.30); GLOMERULAR FILTRATION RATE > 60.0 (>32); GLUCOSE, FASTING 99 MG/DL (74-106); MAGNESIUM LEVEL 1.5 MG/DL (1.8-2.4); POTASSIUM SERUM 4.3 MMOL/L (3.5-5.1); SODIUM LEVEL 130 MMOL/L (136-145); TOTAL PROTEIN 5.3 G/DL (5.7-8.2)
[2024-05-05] MEDS: MAG SULF 1GM/100ML (MAG RUN) 1 GM in IV 1 EA IV SCH (06:15)
[2024-05-05] MEDS: LACTOBACILLUS ACIDOPHILUS CAP (BACID) PO SCH (08:27)
[2024-05-05] MEDS: DOXYCYCLINE HYCLATE 100MG TABLET PO SCH (08:27)
[2024-05-05] MEDS: PANTOPRAZOLE 40MG TAB (PROTONIX) PO SCH (08:27)
[2024-05-05] MEDS: BENAZEPRIL 5MG TAB PO SCH (08:28)
[2024-05-05] MEDS: amLODIPine 5 MG TAB PO SCH (08:28)
[2024-05-05 11:45] LABS: MAGNESIUM LEVEL 2.1 MG/DL (1.8-2.4)
[2024-05-05 12:00] VITALS: BP 105/45; TEMP 97.9; O2SAT 90
[2024-05-05] MEDS: cefTRIAXone SOD 2 GM in D5W MINI-BAG PLUS 50 ML IV SCH (13:33)
[2024-05-05] MEDS: AZITHROMYCIN 250MG TABLET PO SCH (13:35)
[2024-05-05] MEDS: ATOVAQUONE SUSP 750MG/5ML 210 ML BTL PO SCH (13:35)
[2024-05-05] MEDS: NS 1,000 ML IV SCH (18:37)
[2024-05-05 21:10] VITALS: BP 122/53; TEMP 97.9; O2SAT 91
[2024-05-06 03:20] VITALS: BP 121/54; TEMP 97.7; O2SAT 90
[2024-05-06 07:03] LABS: BASO % 0.2 % (0.0-1.0); EOS % 0.5 % (0.0-3.0); HEMATOCRIT 22.4 % (36.0-47.0); HEMOGLOBIN 7.2 g/dl (12.0-15.5); LYMPH # 1.2 10^3/uL (1.5-5.0); LYMPH % 28.7 % (24.0-44.0); MEAN CORPUSCULAR HEMOGLOBIN 29.1 pg (27.0-33.0); MEAN CORPUSCULAR HGB CONC 32.1 g/dl (32.0-36.5); MEAN CORPUSCULAR VOLUME 90.7 fl (80.0-96.0); MONO # 0.5 10^3/uL (0.0-0.8); MONO % 11.6 % (2.0-8.0); NEUTROPHILS # 2.3 10^3/uL (1.5-8.5); NEUTROPHILS % 57.5 % (36.0-66.0); RED BLOOD COUNT 2.47 10^6/uL (4.00-5.40)
[2024-05-06 07:04] LABS: PLATELET COUNT, AUTOMATED 51 10^3/uL (150-450)
[2024-05-06 07:34] LABS: BLOOD UREA NITROGEN 19 MG/DL (9-23); CALCIUM LEVEL 7.1 MG/DL (8.3-10.6); CARBON DIOXIDE LEVEL 19 MMOL/L (20-31); CHLORIDE LEVEL 107 MMOL/L (98-107); CREATININE FOR GFR 0.81 MG/DL (0.55-1.30); GLOMERULAR FILTRATION RATE > 60.0 (>32); GLUCOSE, FASTING 122 MG/DL (74-106); POTASSIUM SERUM 4.2 MMOL/L (3.5-5.1); SODIUM LEVEL 133 MMOL/L (136-145)
[2024-05-06] MEDS: SODIUM BICARBONATE 325 MG TAB PO SCH ×2 (10:16→20:06)
[2024-05-06 11:20] VITALS: BP 113/53; TEMP 97.3; O2SAT 93
[2024-05-06 11:42] VITALS: BP 116/57; TEMP 97.3; O2SAT 95
[2024-05-06 12:30] VITALS: BP 118/54; TEMP 97.5; O2SAT 93
[2024-05-06 13:05] VITALS: BP 141/56; TEMP 97.2; O2SAT 94
[2024-05-06 13:10] LABS: TRANSFERRIN 140 mg/dL (188-341)
[2024-05-06] MEDS: LR 1,000 ML IV SCH (14:36)
[2024-05-06 14:52] LABS: HEMATOCRIT 28.9 % (36.0-47.0); MEAN CORPUSCULAR HEMOGLOBIN 29.3 pg (27.0-33.0); MEAN CORPUSCULAR HGB CONC 32.2 g/dl (32.0-36.5); MEAN CORPUSCULAR VOLUME 91.2 fl (80.0-96.0); RED BLOOD COUNT 3.17 10^6/uL (4.00-5.40); WHITE BLOOD COUNT 4.4 10^3/uL (4.0-10.0)
[2024-05-06 15:14] LABS: HEMOGLOBIN 9.3 g/dl (12.0-15.5)
[2024-05-06 15:15] LABS: PLATELET COUNT, AUTOMATED 48 10^3/uL (150-450)
[2024-05-06 17:46] LABS: HEMATOCRIT 26.2 % (36.0-47.0); HEMOGLOBIN 8.6 g/dl (12.0-15.5); MEAN CORPUSCULAR HEMOGLOBIN 29.9 pg (27.0-33.0); MEAN CORPUSCULAR HGB CONC 32.8 g/dl (32.0-36.5); RED BLOOD COUNT 2.88 10^6/uL (4.00-5.40); WHITE BLOOD COUNT 4.2 10^3/uL (4.0-10.0)
[2024-05-06 17:48] LABS: PLATELET COUNT, AUTOMATED 50 10^3/uL (150-450)
[2024-05-06 18:25] LABS: BLOOD UREA NITROGEN 18 MG/DL (9-23); CALCIUM LEVEL 7.4 MG/DL (8.3-10.6); CARBON DIOXIDE LEVEL 19 MMOL/L (20-31); CHLORIDE LEVEL 108 MMOL/L (98-107); CREATININE FOR GFR 0.71 MG/DL (0.55-1.30); GLOMERULAR FILTRATION RATE > 60.0 (>32); GLUCOSE, FASTING 154 MG/DL (74-106); POTASSIUM SERUM 4.6 MMOL/L (3.5-5.1); SODIUM LEVEL 133 MMOL/L (136-145)
[2024-05-06 20:30] VITALS: BP 138/59; TEMP 97.5; O2SAT 93
[2024-05-07] MEDS ORDERED: LACTOBACILLUS ACIDOPHILUS CAP (BACID) As Ordered ONE (08:09)
[2024-05-07] MEDS ORDERED: INSULIN LISPRO (NovoLOG) PER UNIT As Ordered ONE (08:11)
[2024-05-07] MEDS ORDERED: AZITHROMYCIN 250MG TABLET As Ordered ONE (08:11)
[2024-05-07] MEDS ORDERED: PANTOPRAZOLE 40MG TAB (PROTONIX) As Ordered ONE (08:11)
[2024-05-07] MEDS ORDERED: amLODIPine 5 MG TAB As Ordered ONE (08:26)
[2024-05-07 08:35] VITALS: BP 108/45
[2024-05-07 12:00] VITALS: BP 108/45; TEMP 98.2; O2SAT 93
[2024-05-07 14:02] LABS: BLOOD UREA NITROGEN 13 MG/DL (9-23); CALCIUM LEVEL 7.4 MG/DL (8.3-10.6); CARBON DIOXIDE LEVEL 21 MMOL/L (20-31); CHLORIDE LEVEL 108 MMOL/L (98-107); CREATININE FOR GFR 0.65 MG/DL (0.55-1.30); GLOMERULAR FILTRATION RATE > 60.0 (>32); GLUCOSE, FASTING 245 MG/DL (74-106); POTASSIUM SERUM 4.7 MMOL/L (3.5-5.1); SODIUM LEVEL 133 MMOL/L (136-145)
[2024-05-07] MEDS ORDERED: ATOV5SUS PO (14:02)
[2024-05-07 14:03] LABS: ALBUMIN 1.5 G/DL (3.2-5.2); ALKALINE PHOSPHATASE 76 U/L (46-116); ALT/SGPT 51 U/L (7.0-40); AST/SGOT 48 U/L (<34); BILIRUBIN,TOTAL 0.8 MG/DL (0.3-1.2); BLOOD UREA NITROGEN 13 MG/DL (9-23); CALCIUM LEVEL 7.5 MG/DL (8.3-10.6); CARBON DIOXIDE LEVEL 22 MMOL/L (20-31); CHLORIDE LEVEL 108 MMOL/L (98-107); CREATININE FOR GFR 0.66 MG/DL (0.55-1.30); GLOMERULAR FILTRATION RATE > 60.0 (>32); GLUCOSE, FASTING 155 MG/DL (74-106); MAGNESIUM LEVEL 1.6 MG/DL (1.8-2.4); PHOSPHORUS LEVEL 2.8 MG/DL (2.4-5.1); POTASSIUM SERUM 4.6 MMOL/L (3.5-5.1); SODIUM LEVEL 134 MMOL/L (136-145); TOTAL PROTEIN 5.2 G/DL (5.7-8.2)
[2024-05-07] MEDS ORDERED: AZIT500T5 PO (14:04)
[2024-05-07 16:27] LABS: HEMATOCRIT 24.7 % (36.0-47.0); HEMOGLOBIN 8.1 g/dl (12.0-15.5); MEAN CORPUSCULAR HEMOGLOBIN 29.6 pg (27.0-33.0); MEAN CORPUSCULAR HGB CONC 32.8 g/dl (32.0-36.5); MEAN CORPUSCULAR VOLUME 90.1 fl (80.0-96.0); PLATELET COUNT, AUTOMATED 53 10^3/uL (150-450); RED BLOOD COUNT 2.74 10^6/uL (4.00-5.40); WHITE BLOOD COUNT 3.9 10^3/uL (4.0-10.0)
[2024-05-07 16:28] LABS: LYMPHOCYTES 18 % (16-44); MONOCYTES 3 % (0-5); NEUTROPHILS 74 % (28-66)
[2024-05-07 16:29] LABS: HYPOCHROMASIA 2+; PLATELET ESTIMATE DECREASED (NORMAL); POLYCHROMASIA 2+
[2024-05-07 17:03] LABS: BASO % 0.2 % (0.0-1.0); HEMATOCRIT 25.2 % (36.0-47.0); HEMOGLOBIN 8.2 g/dl (12.0-15.5); LYMPH # 0.8 10^3/uL (1.5-5.0); MEAN CORPUSCULAR HEMOGLOBIN 29.5 pg (27.0-33.0); MEAN CORPUSCULAR HGB CONC 32.5 g/dl (32.0-36.5); MEAN CORPUSCULAR VOLUME 90.6 fl (80.0-96.0); MONO # 0.4 10^3/uL (0.0-0.8); MONO % 10.7 % (2.0-8.0); NEUTROPHILS # 2.8 10^3/uL (1.5-8.5); NEUTROPHILS % 67.6 % (36.0-66.0); PLATELET COUNT, AUTOMATED 49 10^3/uL (150-450); RED BLOOD COUNT 2.78 10^6/uL (4.00-5.40); WHITE BLOOD COUNT 4.1 10^3/uL (4.0-10.0)
[2024-05-08 13:13] LABS: CMV QUANT DNA PCR (PLASMA) Not Detected; CMV SOURCE Whole Blood; log10 CMV QN DNA P1 Not Detected log IU/mL
[2024-05-09 12:06] LABS: EBV PCR QUAL WHOLE BLD Positive (Negative)
[2024-05-10 01:17] LABS: Ehrlichia chaffeensis NOT DETECTED (NOT DETECT)
[2024-05-10 01:23] LABS: Anaplasma phagocytophilum NOT DETECTED (NOT DETECT); Babesia microti DETECTED (NOT DETECT)
[2024-05-10 14:01] LABS: BORRELIA SPECIES DNA NOT DETECTED (NOT DETECT)
== END 2024-05-07 14:16 | disposition home or self-care (01) | DRG 868 ==
LOC: EDBD 12:22 → M ED 12:22 → M ED INP 16:46 → M MSPAV 21:37
PROVIDERS: ADMIT Internal Medicine; ATTEND Internal Medicine
PROC: 30233N1 Transfusion of Nonautologous Red Blood Cells into Peripheral Vein, Percutaneous Approach (ICD-10-PCS; principal; 2024-05-06)
DX: A69.20 Lyme disease, unspecified (principal); E87.1 Hypo-osmolality and hyponatremia; K52.1 Toxic gastroenteritis and colitis; J98.11 Atelectasis; B60.00 Babesiosis, unspecified; D69.6 Thrombocytopenia, unspecified; I10 Essential (primary) hypertension; E78.5 Hyperlipidemia, unspecified; E03.9 Hypothyroidism, unspecified; K21.9 Gastro-esophageal reflux disease without esophagitis; R16.1 Splenomegaly, not elsewhere classified; D63.8 Anemia in other chronic diseases classified elsewhere; R74.01 Elevation of levels of liver transaminase levels; Z66 Do not resuscitate; R53.1 Weakness; T36.4X5A Adverse effect of tetracyclines, initial encounter; E11.9 Type 2 diabetes mellitus without complications; R00.1 Bradycardia, unspecified; R21 Rash and other nonspecific skin eruption; Z95.0 Presence of cardiac pacemaker; Z85.3 Personal history of malignant neoplasm of breast; Z92.21 Personal history of antineoplastic chemotherapy; Z92.3 Personal history of irradiation; Z98.41 Cataract extraction status, right eye; Z90.49 Acquired absence of other specified parts of digestive tract; Z79.84 Long term (current) use of oral hypoglycemic drugs; Z96.641 Presence of right artificial hip joint; Z79.899 Other long term (current) drug therapy

== ENCOUNTER → 2024-05-13 | Outpatient (CLI) | payer MEDICARE ==
[~2024-05-13] MED LIST changes: +ACET-897 PO; +AMLO5CAP53; +ATOV5SUS PO; +AZIT500T5 PO; +DOXY-323 PO; +ERGO500029 PO; +GLIP5TAB20 PO; +LOTR5CAP2 PO; +SEMA0.257 INJ
[2024-05-13 10:37] LABS: BASO % 0.4 % (0.0-1.0); EOS % 0.4 % (0.0-3.0); HEMATOCRIT 34.9 % (36.0-47.0); HEMOGLOBIN 10.6 g/dl (12.0-15.5); LYMPH # 1.5 10^3/uL (1.5-5.0); LYMPH % 21.4 % (24.0-44.0); MEAN CORPUSCULAR HEMOGLOBIN 30.2 pg (27.0-33.0); MEAN CORPUSCULAR HGB CONC 30.4 g/dl (32.0-36.5); MEAN CORPUSCULAR VOLUME 99.4 fl (80.0-96.0); MONO # 0.8 10^3/uL (0.0-0.8); NEUTROPHILS # 4.6 10^3/uL (1.5-8.5); NEUTROPHILS % 66.2 % (36.0-66.0); PLATELET COUNT, AUTOMATED 130 10^3/uL (150-450); RED BLOOD COUNT 3.51 10^6/uL (4.00-5.40); WHITE BLOOD COUNT 6.9 10^3/uL (4.0-10.0)
[2024-05-13 10:47] LABS: ALBUMIN 2.6 G/DL (3.2-5.2); ALKALINE PHOSPHATASE 81 U/L (46-116); ALT/SGPT 33 U/L (7.0-40); AST/SGOT 32 U/L (<34); BILIRUBIN,TOTAL 1.2 MG/DL (0.3-1.2); BLOOD UREA NITROGEN 11 MG/DL (9-23); CALCIUM LEVEL 9.1 MG/DL (8.3-10.6); CARBON DIOXIDE LEVEL 28 MMOL/L (20-31); CHLORIDE LEVEL 104 MMOL/L (98-107); CREATININE FOR GFR 0.88 MG/DL (0.55-1.30); GLOMERULAR FILTRATION RATE > 60.0 (>32); GLUCOSE, FASTING 179 MG/DL (74-106); POTASSIUM SERUM 4.7 MMOL/L (3.5-5.1); SODIUM LEVEL 137 MMOL/L (136-145); TOTAL PROTEIN 7.3 G/DL (5.7-8.2)
== END ==
LOC: M PLALAB 08:39
PROVIDERS: ATTEND Internal Medicine Infectious Disease
DX: B60.00 Babesiosis, unspecified (principal); A69.20 Lyme disease, unspecified

== ENCOUNTER 2025-01-17 09:44 | Emergency (ER) | payer MEDICARE ==
[~2025-01-17] VITALS: Ht 154.9 cm; Wt 70.5 kg
[~2025-01-17 09:44] MED LIST changes: -DOXY-323 PO; +DOXY-441 PO; +GLIP-318 PO; -GLIP5TAB20 PO
[2025-01-17] MEDS ORDERED: TRUL0.5I (11:56)
[2025-01-17] MEDS: ACETAMINOPHEN 325 MG TAB PO ONE (13:07)
[2025-01-17 13:35] VITALS: BP 160/72; TEMP 97.6; O2SAT 98
== END 2025-01-17 13:36 | disposition home or self-care (01) ==
LOC: M ED 09:44
DX: M25.551 Pain in right hip (principal); E11.9 Type 2 diabetes mellitus without complications; I10 Essential (primary) hypertension; Z85.3 Personal history of malignant neoplasm of breast; Z79.1 Long term (current) use of non-steroidal anti-inflammatories (NSAID); Z79.4 Long term (current) use of insulin; Z79.899 Other long term (current) drug therapy